=== PATIENT | female | born 1970 | race Caucasian/White ===

== ENCOUNTER 2017-01-06 18:17 | Emergency (ER) | payer MEDICAID ==
[~2017-01-06 18:17] MED LIST: ALBUTEROL2.5 MG/0.1 IH; ATIVAN0.5 M1 PO; ATIVAN0.5 MG PO; AUGMENTIN 875-11 TAB PO; AURODEX EAR DRO15 ML OT; CEFDINIR300 MG PO; FOCALIN XR20 MG PO; LAMICTAL200 MG PO; LAMOTRIGINE200 MG PO; LEVAQUIN500 MG; LORAZEPAM0.5 MG PO; LORTAB 5/5001 EA PO; MUCINEX D TABL1 EACH PO; NASONEX17 GM NS; NORCO 5-325 TA1 EACH PO; NORCO 7.5/325 T1 TAB PO; OXYGEN INH; PREDNISONE10 M1 PO; PREDNISONE10 MG PO; PROAIR HFA8.5 GM IH; PROVENTIL17 GM IH; REFRESH5 ML OP; SPIRIVA18 MC1 IH; SYMBICORT 160-1 PUFF INH; SYMBICORT 160-4.6 GM IH; TESSALON200 MG PO; VICODIN 5/500 T1 TAB PO
[2017-01-06] MEDS ORDERED: FLONASE ALLERG9.9 ML (18:56)
[2017-01-06] MEDS ORDERED: PREMARIN1.25 M1 PO (18:56)
[2017-01-06] MEDS ORDERED: ALBUTEROL0.63 MG/1 INH (18:56)
[2017-01-06] MEDS ORDERED: NORCO 5-325 TA1 EACH PO (19:56)
== END 2017-01-06 20:05 ==
LOC: EDMED 18:17
DX: S16.1XXA Strain of muscle, fascia and tendon at neck level, initial encounter (principal); S80.01XA Contusion of right knee, initial encounter; M54.9 Dorsalgia, unspecified; R51 Headache; J44.9 Chronic obstructive pulmonary disease, unspecified; I10 Essential (primary) hypertension; F17.210 Nicotine dependence, cigarettes, uncomplicated; Z79.51 Long term (current) use of inhaled steroids; Z79.899 Other long term (current) drug therapy; V49.40XA Driver injured in collision with unspecified motor vehicles in traffic accident, initial encounter; Y92.410 Unspecified street and highway as the place of occurrence of the external cause